=== PATIENT | male | born 1990 | race Caucasian/White ===

== ENCOUNTER 2016-12-02 | Outpatient (CLI) | payer MEDICAID | END 2016-12-02 22:20 | disposition critical access hospital (66) | CPT/HCPCS: A0425; A0427 ==

== ENCOUNTER 2016-12-02 22:36 | Emergency (ER) | payer MEDICAID ==
[2016-12-02] MEDS ORDERED: diphenhydrAMINE INJ 50 MG/ML VIAL IVP STA (22:48)
[2016-12-02] MEDS ORDERED: KETOROLAC 60 MG/2 ML VIAL IVP STA (22:48)
[2016-12-02] MEDS ORDERED: SODIUM CHLORIDE 0.9% 1,000 ML IV ONE (22:48)
[2016-12-02] MEDS ORDERED: METOCLOPRAMIDE 10 MG/2 ML VIAL IVP STA (22:49)
[2016-12-02] MEDS ORDERED: KETOROLAC 30 MG/ML VIAL ONE (22:53)
[2016-12-02] MEDS ORDERED: diphenhydrAMINE INJ 50 MG/ML VIAL ONE (22:53)
[2016-12-02] MEDS ORDERED: METOCLOPRAMIDE 10 MG/2 ML VIAL IVP ONE (22:53)
[2016-12-03] MEDS ORDERED: POTASSIUM CHLORIDE 20 MEQ TABLET PO STA (00:04)
[2016-12-03] MEDS ORDERED: SODIUM CHLORIDE 0.9% 1,000 ML IV ONE (00:04)
[2016-12-03] MEDS ORDERED: POTASSIUM CHLORIDE 20 MEQ TABLET PO ONE (00:21)
[2016-12-03] MEDS ORDERED: MAGNESIUM OXIDE 400 MG TABLET PO STA (00:21)
[2016-12-03] MEDS ORDERED: MAGNESIUM OXIDE 400 MG TABLET PO ONE (00:28)
== END 2016-12-03 02:14 | disposition home or self-care (01) ==
DX: R55 Syncope and collapse (principal); I49.9 Cardiac arrhythmia, unspecified; Z87.11 Personal history of peptic ulcer disease; F17.200 Nicotine dependence, unspecified, uncomplicated
CPT/HCPCS: 36415; 80053; 80306; 80320; 81003; 82550; 83605; 83690; 84443; 84484; 85025; 93005; 93010; 96361; 96374; 96375; 99284; A9270

== ENCOUNTER 2017-02-28 14:21 | Outpatient (CLI) | payer MEDICAID ==
--- NOTE | 2017-03-01 09:27 | XRAY Report ---
THREE-VIEW RIGHT KNEE: 02/28/2017 CLINICAL INDICATION: Right knee joint pain. FINDINGS: AP, lateral, sunrise views of the right knee demonstrate no evidence of fracture or disloc ation. No effusion is present. There is an exostosis arising from the posteromedial femur, measurin g approximately 2 cm in length. IMPRESSION: POSTEROMEDIAL FEMORAL EXOSTOSIS. OTHERWISE, NORMAL RIGHT KNEE. JOB #: [id number] EXT JOB #:[id number]
== END 2017-02-28 14:22 | disposition home or self-care (01) ==
LOC: DI.N 14:21
PROVIDERS: ATTEND Physician Assistant
DX: M89.9 Disorder of bone, unspecified (principal)

== ENCOUNTER 2017-04-20 20:29 | Emergency (ER) | payer OTHER, MEDICAID ==
[2017-04-20] MEDS ORDERED: LIDOCAINE-EPINEPH-TETRACAINE 3 ML SYRINGE TOP STA (23:48)
[2017-04-20] MEDS ORDERED: oxyCOD/ACETAMIN 5 MG/325 MG TABLET PO STA (23:48)
[2017-04-20] MEDS ORDERED: IBUPROFEN 400 MG TABLET PO STA (23:48)
[2017-04-20] MEDS ORDERED: ONDANSETRON ODT 4 MG TABLET TL STA (23:48)
[2017-04-20] MEDS ORDERED: LIDOCAINE-EPINEPH-TETRACAINE 3 ML SYRINGE TOP ONE (23:54)
[2017-04-20] MEDS ORDERED: IBUPROFEN 400 MG TABLET PO ONE (23:54)
[2017-04-20] MEDS ORDERED: oxyCOD/ACETAMIN 5 MG/325 MG TABLET PO ONE (23:54)
[2017-04-20] MEDS ORDERED: ONDANSETRON ODT 4 MG TABLET ONE (23:54)
--- NOTE | 2017-04-21 00:04 | ED Physician Documentation ---
History of Present Illness - Stated complaint Stated Complaint: NOSE INJ - Chief complaint Chief Complaint: Heent - Additonal information Additional information: hx from pt 26 male at work shelving tipped and heavy sheet metal fell on him striking his face causing a nasal lac and flexing his head forward injuring his neck no LOC but felt faint severe DARBY numerous episodes of vomiting since severe low neck pain no numbness or weakness no blood thinners Review of Systems Eyes: denies: Loss of vision Ears: denies: Drainage/discharge Nose: denies: Epistaxis (none from nares, from bridge of nose) GI: reports: Vomiting Skin: reports: Laceration (s) Musculoskeletal: reports: Neck pain Neurologic: reports: Headache, Head injury Endocrine: denies: Easy bruising / bleeding Immunocompromised: denies: Immunocompromised PD PAST MEDICAL HISTORY - Past Medical History Past Medical History: Yes Cardiovascular: Arrhythmia Respiratory: None Neuro: Headache/migraine Endocrine/Autoimmune: None GI: Ulcers : None HEENT: None Psych: Depression, Anxiety, Bipolar disorder, Panic attacks, ADD/ADHD, Post traumatic stress disorder, Obsessive compulsive disorder Musculoskeletal: None Derm: None - Past Surgical History Past Surgical History: Yes - Present Medications Home Medications: Ambulatory Orders Medication Instructions Recorded Confirmed Ondansetron Odt [Zofran] 4 mg TL Q6H PRN #10 tablet 04/21/17 - Allergies Allergies/Adverse Reactions: Allergies Allergy/AdvReac Type Severity Reaction Status Date / Time No Known Drug Allergies Allergy Verified 04/20/17 20:39 - Social History Does the pt smoke?: Yes Smoking Status: Current every day smoker Does the pt drink ETOH?: Yes Does the pt have substance abuse?: Yes Substance Use and Type: Marijuana - Immunizations Immunizations are current?: No Immunizations: TDAP >10years/unknown - POLST Patient has POLST: No PD ED PE NORMAL - Vitals Vital signs reviewed: Yes - HEENT HEENT: PERRL, Ears normal (no chavez sign), Other (lac to brisge of nose, TTP nose and medial orbits / mid face, no racoon eyes EOMI PERRL, no epstaxis, septum midline) - Neck Neck: No: No bony TTP (TTP C67, no step off) - Cardiac Cardiac: RRR - Respiratory Respiratory: No respiratory distress, Clear bilaterally - Neuro Neuro: Alert and oriented X 3, sr vice president 2-12 intact, No motor deficit, No sensory deficit, Normal speech Results - Vitals Vitals: Vital Signs - 24 hr 04/20/17 20:35 Temperature 36.7 C Heart Rate 94 Respiratory 20 Rate Blood Pressure 123/69 O2 Saturation 99 Oxygen O2 Source Room air - Rads (name of study) CTH Radiology: See rad report (neg) CT CS Radiology: See rad report (neg) CT facial Radiology: See rad report (neg) Procedures - Laceration (location) nose Length in cm: 1 Wound type: Linear Neurovascular status: Sensory intact, Motor intact Anesthesia: LET Wound Preparation: Irrigated copiously NS, To the base. No: FB identified Skin layer closure: Dermabond Other: Patient tolerated well, Tetanus booster given Complexity: Simple Departure - Departure Disposition: 01 Home, Self Care Clinical Impression: Nasal laceration Qualifiers: Encounter type: initial encounter Qualified Code(s): S01.21XA - Laceration without foreign body of nose, initial encounter Head injury Qualifiers: Encounter type: initial encounter Qualified Code(s): S09.90XA - Unspecified injury of head, initial encounter Neck sprain Qualifiers: Encounter type: initial encounter Qualified Code(s): S13.9XXA - Sprain of joints and ligaments of unspecified parts of neck, initial encounter Condition: Good Instructions: ED Head Injury Closed, ED Sprain Strain Neck, ED Laceration Facial Skin Glue Follow-Up: Aurelio Alvarado PA-C [Primary Care Provider] - Prescriptions: Ondansetron Odt [Zofran] 4 mg TL Q6H PRN #10 tablet PRN Reason: Nausea / Vomiting Comments: The CT scans were fine - no facial fractures, no brain bleeding, no spine fracture or dislocation The skin glue will gradually flake off over about 10 days. You may shower and bather normally Do not apply any antibiotic ointment to the glue - it will cause it to dissolve Motrin and tylenol for the pain Zofran every 6 hr as needed for nausea and vomiting Off work for two days Follow up with your PMD next week for a recheck if not feeling better No contact sports or activities where you might strike your head until you feeling completely back to normal.
[2017-04-21] MEDS ORDERED: LIDOCAINE-EPINEPH-TETRACAINE 3 ML SYRINGE TOP STA (00:39)
--- NOTE | 2017-04-21 00:59 | CT Preliminary Report ---
Exam: CT Head W/O IMPRESSION: No acute or focal intracranial abnormality. [facility] SITE ID: [id number]
--- NOTE | 2017-04-21 01:00 | CT Preliminary Report ---
Exam: CT Cervical Spine W/O IMPRESSION: No fractures identified in the cervical spine. [facility] SITE ID: [id number]
--- NOTE | 2017-04-21 01:01 | CT Report ---
EXAM: CT HEAD EXAM DATE: 04/21/2017 12:32 AM. CLINICAL HISTORY: Headache and vomiting after head trauma. COMPARISON: 06/19/2016. TECHNIQUE: Multiaxial CT images were obtained from the foramen magnum to the vertex. IV contrast: Non e. Reformats: Coronal. In accordance with CT protocol optimization, one or more of the following dose reduction techniques w ere utilized for this exam: automated exposure control, adjustment of mA and/or KV based on patient s ize, or use of iterative reconstructive technique. FINDINGS: Parenchyma: No intraparenchymal hemorrhage. No evidence of mass, midline shift, or CT findings of inf arction. Stacy-white differentiation is distinct. Extraaxial Spaces: Normal for age. No subdural or epidural collections identified. Ventricles: Normal in size and position. Sinuses: Imaged paranasal sinuses, orbits, and mastoids show no significant abnormality. Bones: No evidence of fracture or calvarial defect. Other: No change since the prior study IMPRESSION: No acute or focal intracranial abnormality. [facility] Referring Provider Line: [phone] SITE ID: [id number]
--- NOTE | 2017-04-21 01:03 | CT Report ---
EXAM: CT CERVICAL SPINE WITHOUT CONTRAST DATE: 04/21/2017 12:12 AM HISTORY: Sheet metal fell on him, C6-C7 pain. COMPARISONS: None. TECHNIQUE: Thin-section axial images were acquired of the cervical spine without contrast. Post-proce ssing: Coronal and sagittal reformats. Other: None. In accordance with CT protocol optimization, one or more of the following dose reduction techniques w ere utilized for this exam: automated exposure control, adjustment of mA and/or KV based on patient s ize, or use of iterative reconstructive technique. FINDINGS: Alignment: Normal. No scoliosis or spondylolisthesis. Bones: No fracture or bone lesion. Interspace Levels/Facets: C1-C2: Unremarkable. C2-C3: Unremarkable. C3-C4: Unremarkable. C4-C5: Unremarkable. C5-C6: Unremarkable. C6-C7: Unremarkable. C7-T1: Unremarkable. Musculature: Normal. No fatty atrophy. Other: The paravertebral and prevertebral soft tissues are normal. The lung apices are clear. IMPRESSION: No fractures identified in the cervical spine. [facility] Referring Provider Line: [phone] SITE ID: [id number]
--- NOTE | 2017-04-21 01:03 | CT Preliminary Report ---
Exam: CT Facial Bones W/O IMPRESSION: No facial bone fracture is identified. [facility] SITE ID: [id number]
[2017-04-21] MEDS ORDERED: TETANUS/DIPHTHERIA/PERTUSSIS 0.5 ML SYRINGE IM ONE ×2 (01:05→01:14)
--- NOTE | 2017-04-21 01:05 | CT Report ---
EXAM: CT MAXILLOFACIAL WITHOUT CONTRAST EXAM DATE: 04/21/2017 12:32 AM. CLINICAL HISTORY: Sheet metal fell on him, nose and midface pain. COMPARISONS: None. TECHNIQUE: Thin-section axial images were acquired of the face without contrast. Post-processing: Cor onal and sagittal reformats. Other: None. In accordance with CT protocol optimization, one or more of the following dose reduction techniques w ere utilized for this exam: automated exposure control, adjustment of mA and/or KV based on patient s ize, or use of iterative reconstructive technique. FINDINGS: Bones: No fracture or bone lesion. Temporomandibular Joints: The temporomandibular joints are symmetric and normally located. Sinuses: No significant abnormality Other: Soft tissue injury over the bridge of the nose. IMPRESSION: No facial bone fracture is identified. [facility] Referring Provider Line: [phone] SITE ID: [id number]
[2017-04-21 01:22] VITALS: BP 135/57
== END 2017-04-21 01:34 | disposition home or self-care (01) ==
LOC: ED 20:29
DX: S01.21XA Laceration without foreign body of nose, initial encounter (principal); S09.90XA Unspecified injury of head, initial encounter; S13.9XXA Sprain of joints and ligaments of unspecified parts of neck, initial encounter; W22.8XXA Striking against or struck by other objects, initial encounter; Y99.0 Civilian activity done for income or pay
CPT/HCPCS: 12011; 70450; 70486; 72125; 90471; 90715; 99282; 99284; A9270; Q0162

== ENCOUNTER 2017-05-28 01:56 | Outpatient (CLI) | payer MEDICAID | END 2017-05-28 01:57 | disposition critical access hospital (66) | LOC: EMS 01:56 | PROVIDERS: ATTEND Surgery | DX: R40.20 Unspecified coma (principal) | CPT/HCPCS: A0425; A0427 ==

== ENCOUNTER 2017-05-28 02:15 | Emergency (ER) | payer MEDICAID ==
[2017-05-28 02:48] LABS: BASOPHILS % (AUTO) 0.3 %; EOSINOPHILS % (AUTO) 0.5 %; HCT - HEMATOCRIT 43.3 % (42.0-52.0); LYMPHOCYTES # (AUTO) 0.9 10^3/uL (1.5-3.5); LYMPHOCYTES % (AUTO) 10.1 %; MEAN CORPUSCULAR HEMOGLOBIN 29.9 pg (27.0-31.0); MEAN CORPUSCULAR HGB CONC 34.6 g/dL (32.0-36.0); MEAN CORPUSCULAR VOLUME 86.4 fL (80.0-94.0); MEAN PLATELET VOLUME 8.4 fL (7.4-11.4); MONOCYTES # (AUTO) 0.4 10^3/uL (0.0-1.0); MONOCYTES % (AUTO) 4.5 %; NEUTROPHILS # (AUTO) 7.5 10^3/uL (1.5-6.6); NEUTROPHILS % (AUTO) 84.6 %; RED BLOOD COUNT 5.02 10^6/uL (4.70-6.10); RED CELL DISTRIBUTION WIDTH 13.5 % (12.0-15.0); UNCORRECTED WHITE BLOOD COUNT 8.8 x10^3/uL; WHITE BLOOD COUNT 8.8 x10^3/uL (4.8-10.8)
[2017-05-28 02:56] LABS: ALBUMIN/GLOBULIN RATIO 1.5 (1.0-2.2); BILIRUBIN,TOTAL 0.6 mg/dL (0.2-1.0); CALCIUM 9.2 mg/dL (8.5-10.3); CREATININE 0.8 mg/dL (0.6-1.2); POTASSIUM 3.9 mmol/L (3.5-5.0); TOTAL PROTEIN 7.6 g/dL (6.7-8.2)
--- NOTE | 2017-05-28 03:00 | ED Physician Documentation ---
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 Also T+R November 2016 for syncope) - Additional information Additional information: was sitting in his garage tonight when he experienced chest pain, subsequently awoke on floor with medics present. He has had similar episodes in the past and has undergone ED testing at least twice for syncope without diagnostic results. He says he was upset with some of the events of the day and was "mulling over" this when he felt symptoms come on. In ED, he c/o feeling jittery and dizzy, denies chest pain. Review of Systems Constitutional: reports: Reviewed and negative Eyes: reports: Reviewed and negative Cardiac: reports: Chest pain / pressure (resolved). denies: Palpitations Respiratory: reports: Reviewed and negative GI: reports: Reviewed and negative Musculoskeletal: reports: Reviewed and negative Neurologic: reports: Generalized weakness, Seizure (girlfriend witnessed seizure -like activity, described as shaking of body and limbs, although she does not describe coordinated nor rhythmic activity), LOC. denies: Focal weakness, Numbness, Headache, Head injury PD PAST MEDICAL HISTORY - Past Medical History Past Medical History: Yes Cardiovascular: Arrhythmia Respiratory: None Neuro: Headache/migraine Endocrine/Autoimmune: None GI: Ulcers : None HEENT: None Psych: Depression, Anxiety, Bipolar disorder, Panic attacks, ADD/ADHD, Post traumatic stress disorder, Obsessive compulsive disorder Musculoskeletal: None Derm: None - Past Surgical History Past Surgical History: Yes - Present Medications Home Medications: Ambulatory Orders Medication Instructions Recorded Confirmed No Known Home Medications [No 05/28/17 05/28/17 Known Home Medications] - Allergies Allergies/Adverse Reactions: Allergies Allergy/AdvReac Type Severity Reaction Status Date / Time No Known Drug Allergies Allergy Verified 05/28/17 02:23 - Social History Does the pt smoke?: Yes Smoking Status: Current every day smoker Does the pt drink ETOH?: Yes Does the pt have substance abuse?: No - Immunizations Immunizations are current?: Yes Immunizations: TDAP >10years/unknown - POLST Patient has POLST: No PD ED PE NORMAL - Vitals Vital signs reviewed: Yes - General General: Alert and oriented X 3, No acute distress (appears anxious; poor eye contact), Well developed/nourished - HEENT HEENT: Atraumatic, PERRL, EOMI, Moist mucous membranes - Neck Neck: Supple, no meningeal sign, No bony TTP - Cardiac Cardiac: RRR, No murmur, No gallop, No rub - Respiratory Respiratory: No respiratory distress, Clear bilaterally - Abdomen Abdomen: Soft, Non tender - Back Back: No spinal TTP - Derm Derm: Normal color, Warm and dry - Neuro Neuro: Alert and oriented X 3, show dog trainer 2-12 intact, No motor deficit, No sensory deficit, Normal speech, Other (2+/4 DTR bilateral bicep and patella) PD ED PE EXPANDED - Neuro Neuro: Nystagmus (several beats of horizontal nystagmus with gaze in either direction) Results - Vitals Vitals: Oxygen O2 Source Room air - Labs Labs: Laboratory Tests 05/28/17 05/28/17 02:35 02:35 WBC 8.8 RBC 5.02 Hgb 15.0 Hct 43.3 MCV 86.4 MCH 29.9 MCHC 34.6 RDW 13.5 Plt Count 217 MPV 8.4 Neut # 7.5 H Lymph # 0.9 L [place] # 0.4 Eos # 0.0 Baso # 0.0 Absolute Nucleated RBC 0.00 Nucleated RBCs 0.0 Sodium 139 Potassium 3.9 Chloride 104 Carbon Dioxide 26 Anion Gap 9.0 BUN 16 Creatinine 0.8 Estimated GFR (MDRD) 118 Glucose 95 Calcium 9.2 Total Bilirubin 0.6 AST 29 ALT 17 Alkaline Phosphatase 72 Total Protein 7.6 Albumin 4.5 Globulin 3.1 Albumin/Globulin Ratio 1.5 Lipase 16 L PD MEDICAL DECISION MAKING - ED course Complexity details: reviewed results, re-evaluated patient, considered differential, d/w patient Departure - Departure Disposition: 01 Home, Self Care Clinical Impression: Syncope Qualifiers: Syncope type: unspecified Qualified Code(s): R55 - Syncope and collapse Condition: Good Instructions: ED Fainting Unkn Cause Discharge Date/Time: 05/28/17 06:26
[2017-05-28] MEDS ORDERED: SODIUM CHLORIDE 0.9% 1,000 ML IV STA (03:18)
[2017-05-28 06:26] VITALS: BP 115/63
== END 2017-05-28 06:26 | disposition home or self-care (01) ==
LOC: EDUNIT# → ED 02:15
DX: R55 Syncope and collapse (principal); F17.200 Nicotine dependence, unspecified, uncomplicated
CPT/HCPCS: 36415; 80053; 83690; 85025; 99284